=== PATIENT | male | born 1990 | race African-American/Black ===

== ENCOUNTER 2025-02-20 13:50 | Observation (INO) ==
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
[2025-02-20 15:01] LABS: Basophils # (auto) 0.03 K/uL (0.00-0.20); Basophils % (auto) 0.6 %; Eosinophils % (auto) 4.2 %; Hematocrit (blood only) 48.5 % (42.0-52.0); Hemoglobin 15.8 g/dl (14.0-18.0); Immature Granulocytes # (auto) 0.01 K/uL (0.01-0.20); Immature Granulocytes % (auto) 0.2 %; Lymphocytes # (auto) 1.26 K/uL (1.20-3.40); Lymphocytes % (auto) 26.6 %; Mean Corpuscular Hgb Conc 32.6 g/dL (32.0-36.0); Monocytes # (auto) 0.51 K/uL (0.11-0.59); Monocytes % (auto) 10.8 %; Neutrophils # (auto) 2.72 K/uL (1.40-6.50); Neutrophils % (auto) 57.6 %; Platelet Count 289 K/uL (130-400); RDW Coefficient of Variation 13.9 % (11.5-14.5); Red Blood Count 5.64 M/uL (4.70-6.10); White Blood Count 4.73 K/ul (4.8-10.8)
[2025-02-20 15:20] LABS: Albumin Globulin Ratio 1.4 (0.9-2); Albumin Level 4.8 gm/dl (3.4-5.0); BUN Creatinine Ratio 11.8 (10-20); Bilirubin,Total 0.3 mg/dl (0.2-1.0); Calcium 9.7 mg/dl (8.6-10.3); Creatinine Clr Calc Pharmacy 62.7 ml/min; Globulin 3.4 gm/dl (2.5-4.0); Potassium 4.5 mmol/L (3.5-5.1); Total Protein 8.2 gm/dl (6.0-8.3)
[2025-02-20] MEDS: OPTIRAY 320 100ml IV ONE (16:29)
[2025-02-20 16:38] LABS: Appearance Urine Clear (Clear); Bacteria Urine Automated None Seen (None Seen); Bilirubin Urine Negative (Negative); Blood Urine Negative (Negative); Cast Urine Automated 0-2 /lpf (0-2); Color Urine Yellow; Epithelial Cell Urine Auto 0-2 /hpf (0-2); Glucose Urine UA Negative (Negative); Ketones Urine Negative (Negative); Leukocyte Esterase Urine Negative (Negative); Nitrite Urine Negative (Negative); Protein Urine 1+ (Negative); RBC Urine Automated 0-2 /hpf (0-2); Specific Gravity Urine 1.009 (1.000-1.030); Urobilinogen Urine Negative (Negative); WBC Urine Automated 0-5 /hpf (0-5); pH Urine 7.5 (4.5-7.5)
[2025-02-20] MEDS: SODIUM CHLORIDE 0.9% 1,000 ML IV ONE (16:48)
--- NOTE | 2025-02-20 16:54 | CT Scan Report ---
EXAMINATION: CT of the abdomen and pelvis performed after the administration of IV contrast TECHNIQUE: Helical CT images from the lung bases through the symphysis pubis were obtained with contrast. Coronal and sagittal reformatted images were generated at a workstation for further assessment. Dose reduction techniques were achieved by using automatic exposure control and/or adjustment of mA and/or kV according to patient size and/or use of iterative reconstruction technique. COMPARISON: None HISTORY: Abdominal pain FINDINGS: Lower chest: No consolidation. No pleural effusion or pneumothorax. Liver: No suspicious liver lesions. Portal veins appear patent. Gallbladder: No gallstones. No evidence of acute cholecystitis. Spleen: Normal size. Pancreas: No suspicious pancreatic lesions. The pancreatic duct is not dilated. Adrenal glands: No adrenal nodules. Kidneys: No hydronephrosis or obstructing renal stones. Prominently striated nephrogram, with diffuse, multifocal areas of hypoenhancement throughout the renal cortices bilaterally. There is a punctate nonobstructing stone inferiorly on the right. Bladder / Pelvic organs: Unremarkable. Bowel: No bowel obstruction. No abnormal bowel wall thickening. The appendix is unremarkable. Lymph nodes: No retroperitoneal, mesenteric, or pelvic lymphadenopathy. Peritoneum / Retroperitoneum: No free fluid or air within the abdomen. Vessels: No infrarenal aortic aneurysm. Bones and soft tissues: No suspicious lesion in the bones. IMPRESSION: Prominently striated nephrogram bilaterally, most consistent with pyelonephritis. Electronically signed by Sanford Bermudez 02-20-2025 4:54 PM
[2025-02-20] MEDS: cefTRIAXone SODIUM 2,000 MG/50 ML BAG IV STA (17:16)
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
[2025-02-20] MEDS: FAMOTIDINE 20MG IV PUSH 20 MG/5 ML SYR IV STA (18:35)
--- NOTE | 2025-02-20 20:24 | CT Scan Report ---
EXAM: CT Left Lower Extremity Without Intravenous Contrast Foot INDICATION: Calcaneal wound. TECHNIQUE: Axial computed tomography images of the left foot without intravenous contrast. Sagittal and coronal reformatted images were created and reviewed. This CT exam was performed using one or more of the following dose reduction techniques: automated exposure control, adjustment of the mA and/or kV according to patient size, and/or use of iterative reconstruction technique. COMPARISON: No relevant prior studies available. FINDINGS: Bones/joints: The bones are diffusely demineralized. No erosion or fracture. No osseous destruction or dislocation. Soft tissues: Generalized fatty edema noted without fluid collection. No soft tissue gas. Focal cutaneous thickening plantar to the first metatarsophalangeal joint. No radiopaque foreign body. IMPRESSION: Generalized cellulitis. No abscess or osteomyelitis. ACT 112: N/A Electronically signed by Lia Colunga 02-20-2025 8:24 PM
[2025-02-20] MEDS ORDERED: ACETAMINOPHEN 325 MG TAB PO PRN (20:56)
[2025-02-20] MEDS ORDERED: POLYETHYLENE (MIRALAX) 17 GM PACK PO PRN (20:56)
[2025-02-20] MEDS: SODIUM CHLORIDE 0.9% 1,000 ML IV SCH (21:17)
[2025-02-20] MEDS: PANTOprazole 40 MG/10 ML SYR IV SCH (21:18)
[2025-02-20] MEDS: DICYCLOMINE HCL 10 MG CAP PO PRN (22:54)
[2025-02-20] MEDS: ONDANSETRON INJ 2 MG/ML 2 ML VIAL IV PRN (22:54)
[2025-02-20 23:06] LABS: Amphetamines+Metham, Urine Neg (Neg); Barbiturates, Urine Neg (Neg); Benzodiazepine, Urine Neg (Neg); Cocaine, Urine Neg (Neg); Fentanyl, Urine Neg (Neg); MDMA (Ecstacy), Urine Neg (Neg); Marijuana, Urine Neg (Neg); Methadone, Urine Neg (Neg); Opiate, Urine Neg (Neg); Phencyclidine, Urine Neg (Neg)
[2025-02-20] MEDS ORDERED: LABETALOL HCL IV 5 MG/ML 20ML IV PRN (23:30)
[2025-02-21 07:36] LABS: Hematocrit (blood only) 44.2 % (42.0-52.0); Hemoglobin 14.3 g/dl (14.0-18.0); Mean Corpuscular Hemoglobin 27.6 pg (25.0-34.0); Mean Corpuscular Hgb Conc 32.4 g/dL (32.0-36.0); Mean Corpuscular Volume 85.2 fL (80.0-100.0); Mean Platelet Volume 9.7 fL (9.4-12.4); Platelet Count 256 K/uL (130-400); RDW Coefficient of Variation 13.6 % (11.5-14.5); RDW Standard Deviation 42.5 fL (36.4-46.3); Red Blood Count 5.19 M/uL (4.70-6.10); White Blood Count 4.72 K/ul (4.8-10.8)
[2025-02-21 07:52] LABS: BUN Creatinine Ratio 10.9 (10-20); Calcium 8.8 mg/dl (8.6-10.3); Potassium 4.2 mmol/L (3.5-5.1)
[2025-02-21] MEDS: CYANOCOBALAMIN (B-12) 500 MCG TABLET PO SCH (08:26)
[2025-02-21] MEDS: MULTIVITAMIN TAB PO SCH (08:26)
[2025-02-21] MEDS: FOLIC ACID 1 MG TAB PO SCH (08:26)
[2025-02-21] MEDS: THIAMINE HCL 100 MG TAB PO SCH (08:27)
[2025-02-21] MEDS: cefTRIAXone SODIUM 2,000 MG/50 ML BAG IV SCH (09:02)
--- OUTSIDE RECORDS SUMMARY | 2025-02-21 10:28 | External Medical Summary | Summary of Care ---
Author Name Unknown Organization [facility] Address [address] [facility] [place]AL[place] Reynoso [id number] Care Team Providers Care Threading Machine Feeder Automatic Name Role Phone None, Sigel Primary Care Provider Unavailabl e Encounter Details Date Type Department Care Team (Late st Contact Info) Description 11/29/2024 3:10 PM EST Lab [facility] [address] [place] [address] Cocaine dependence, continuous (HCC) (Primary Dx); Acute alcoholism (HCC) Social History Tobacco Use Types Packs/Day Years Used Date Smoking Tobacco: Never Assessed Sex and Gender Information Value Date Recorded Sex Assigned at Not on file Gender Identity Not on file Sexual Orientation Not on file documented as of this encounter Plan of Treatment Health Maintenance Due Date Last Done Comments DEPRESSION SCREENING 1991 HEPATITIS C SCREENING 1991 SDOH SCREENING 1991 HIV SCREENING 2006 DTaP/Tdap/Td Vaccines (1 - Tdap) 2010 INFLUENZA VACCINE (#1) 2024 RSV IMMUNIZATION 60 YRS+ or (1 - 1-dose 75+ series) 2066 HEPATITIS A IMMUNIZATION SERIES Aged Out No longer eligible based on patient's age to complete this topic HPV IMMUNIZATION SERIES Aged Out No l onger eligible based on patient's age to complete this topic MENINGOCOCCAL VACCINE IMM Aged Out No longer eligible based on patient's age to complete this topic PNEUMOCOCCAL 0-64 YRS Aged Out No piter jailyn eligible based on patient's age to complete this topic RSV IMMUNIZATION <20 MONTHS Aged Out No longer eligible based on patient's age to complete this topic documented as of this encounter Procedures Procedure Name Priority Date/Time Associated Diagnosis Comments URINALYSIS WITH REFLEX CULTURE Routine 11/29/2024 3:25 PM EST Cocaine dependence, continuous (HCC) Acute alcoholism (HCC) CBC WITH DIFFERENTIAL Routine 11/29/2024 3:23 PM EST Cocaine dependence, continuous (HCC) Acute alcoholism (HCC) COMPREHENSIVE METABOLIC PANEL Routine 11/29/2024 3:23 PM EST Cocaine dependence, continuous (HCC) Acute alcoholism (HCC) documented in this encounter Results * URINALYSIS WITH REFLEX CULTURE (11/29/2024 3:25 PM EST) Urine Color Yellow Yellow 11/29/2024 4:04 PM [facility] Urine Appearance Clear Clear 11/29/19 4:04 PM [facility] Urine Glucose Negative Negative mg/dl 11/29/2024 4:04 PM [facility] Urine Bilirubin Negative Negative 4:04 PM [facility] Urine Ketones Negative Negative mg/dL 11/29/2024 4:04 PM [facility] Urine Specific [place] <=1.005 1.005 - 1.030 11/29/2024 4:04 PM [facility] Urine Blood Negative Negative 11/29/2024 4:04 PM [facility] Urine Ph 6.5 5.0 - 8.0 11/29/2024 4:04 PM [facility] Urine Protein Negative Negative mg/dl 11/29/2024 4:04 PM [facility] Urine Urobilinogen 0.2 0.2 - 1.0 E.U./DL 11/29/2024 4:04 PM [facility] Urine Nitrite Negative Negative 11/29/2024 4:04 PM [facility] Urine Leukocytes Negative Negative 11/29/19 4:04 PM [facility] Urine URINE SPECIMEN OBTAINED BY CLEAN CATCH PROCEDURE / Unknown Collection - Patient / Unknown 11/29/2024 3:25 PM EST 11/29/2024 3:45 PM EST Julius Hanks MD LABORATORY [facility] [address] [place] [address] * (ABNORMAL) COMPREHENSIVE METABOLIC PANEL (11/29/2024 3:23 PM EST) Sodium 140 136 - 145 mmol/L 11/29/19 4:17 PM [facility] Potassium 4.3 3.5 - 5.1 mmol/L 11/29/19 4:17 PM [facility] Chloride 107 98 - 107 mmol/L 4:17 PM [facility] CO2 23 22 - 29 mmol/L 11/29/2024 4:17 PM [facility] Calcium 9.0 8.6 - 10.0 mg/dl 11/29/19 4:17 PM [facility] Albumin 4.3 3.5 - 5.2 g/dl 11/29/2024 4:17 PM [facility] BUN 10 6 - 20 mg/dl 11/29/2024 4:17 PM [facility] Creatinine 1.00 0.67 - 1.17 mg/dl 025 4:17 PM [facility] Glucose 110(H) 70 - 99 mg/dl 11/29/2024 4:17 PM [facility] Total Protein 7.0 6.4 - 8.3 g/dl 025 4:17 PM [facility] Total Bilirubin 0.20 0.00 - 1.10 MG/DL 11/29/2024 4:17 PM [facility] AST 21 <=40 U/L 11/29/2024 4:17 PM [facility] ALT 40 5 - 41 U/L 11/29/2024 4:17 PM [facility] Alkaline Phosphatase 84 40 - 129 U/L 11/29/2024 4:17 PM [facility] eGFR >60 See Interpretation Below ml/min/1.73ml Sq 11/29/2024 4:17 PM [facility] Comment: Estimated GFR Interpretation: Above 60ml/min/1.73m2 = Normal Renal Function 30-59 ml/min/1.73m2 = Stage 3 Chronic Kidney Disease 15-29 ml/min/1.73m2 = Stage 4 Chronic Kidney Disease Less than 15 ml/min/1.73m2 = Stage 5 Chronic Kidney Disease Reported eGFR is based the CKD-EPI 2020 equation that does not use a race coefficient. https://www.kidney.org/professionals/kdoqi/gfr_calculator BUN/Creatinine Ratio 10 6 - 22 RATIO 11/29/2024 4:17 PM [facility] Anion Gap 10 3 - 11 mmol/L 11/29/2024 4:17 PM [facility] A/G Ratio 1.6 0.8 - 2.0 ratio 4:17 PM [facility] Blood BLOOD SPECIMEN / Unknown Venipuncture / Unknown 11/29/2024 3:23 PM EST 11/29/2024 3:44 PM EST Julius Hanks MD LABORATORY [facility] [address] [place] [address] * CBC WITH DIFFERENTIAL (11/29/2024 3:23 PM EST) WBC Count 6.71 4.23 - 9.07 K/uL 11/29/2024 3:50 PM [facility] RBC Count 5.27 4.30 - 5.89 M/UL 11/29/2024 3:50 PM [facility] Hemoglobin 14.9 13.7 - 17.5 g/dL 11/29/2024 3:50 PM [facility] Hematocrit 45.1 40.1 - 51.0 % 11/29/2024 3:50 PM [facility] MCV 85.6 79.0 - 92.2 FL 11/29/2024 3:50 PM [facility] MCH 28.3 25.7 - 32.2 PG 11/29/2024 3:50 PM [facility] MCHC 33.0 32.3 - 36.5 g/dL 11/29/2024 3:50 PM [facility] Platelet Count 314 163 - 337 K/uL 11/29/2024 3:50 PM [facility] MPV 10.0 9.4 - 12.4 FL 11/29/2024 3:50 PM [facility] RDW 13.3 11.6 - 14.4 % 11/29/2024 3:50 PM [facility] Neutrophil % 46.2 34.0 - 67.9 % 11/29/2024 3:50 PM [facility] Lymphocyte % 41.3 21.8 - 53.1 % 11/29/2024 3:50 PM [facility] Monocyte % 7.5 5.3 - 12.2 % 11/29/2024 3:50 PM [facility] Eosinophil % 4.3 0.8 - 7.0 % 11/29/2024 3:50 PM [facility] Basophil % 0.6 0.2 - 1.2 % 11/29/2024 3:50 PM [facility] Neutrophils Absolute (ANC) 3.10 1.78 - 5.38 K/UL 11/29/2024 3:50 PM [facility] Lymphocytes Absolute 2.77 1.32 - 3.57 K/UL 11/29/2024 3:50 PM [facility] Monocytes Absolute 0.50 0.30 - 0.82 K/UL 11/29/2024 3:50 PM [facility] Eosinophils Absolute 0.29 0.04 - 0.54 K/UL 11/29/2024 3:50 PM [facility] Basophils Absolute 0.04 0.00 - 0.08 K/UL 11/29/2024 3:50 PM [facility] Immature Gran % 0.1 0.0 - 0.4 % 11/29/2024 3:50 PM [facility] Immature Grans Absolute 0.01 0.00 - 0.03 K/uL 11/29/2024 3:50 PM [facility] Blood BLOOD SPECIMEN / Unknown Venipuncture / Unknown 11/29/2024 3:23 PM EST 11/29/2024 3:44 PM EST Julius Hanks MD LABORATORY [facility] [address] [place] [address] documented in this encounter Visit Diagnoses Diagnosis Cocaine dependence, continuous (HCC)- Primary Cocaine dependence, continuous Acute alcoholism (HCC) Acute alcoholic intoxication in alcoholism, unspecified documented in this encounter Care Teams Threading Machine Feeder Automatic Relationship Specialty Start Date End Date None, Sigel [place]INT[place]A [id number] PCP - General 11/29/24 documented as of this encounter
--- OUTSIDE RECORDS SUMMARY | 2025-02-21 10:28 | External Medical Summary | Summary of Care ---
Author Name Unknown Organization [facility] Address [address] [address] Care Team Providers Care Horticulture Supervisor Name Role Phone None, [place] Primary Care Provider Unavailabl e Reason for Visit * Reason Comments Emesis Abdominal Pain Encounter Details Date Type Department Care Team (Late st Contact Info) Description 12/29/2024 1:03 PM EST - 12/29/2024 4:24 PM EST Emergency [facility] Emergency Department [address] [place] [address] Angus Wilkins MD [address] [id number] Emergency Discharge Disposition: Home or Self Care (Routine) Allergies No known active allergiesdocumented as of this encounter (statuses as of 12/30/2024) Social History Tobacco Use Types Packs/Day Years Used Date Smoking Tobacco: Never Assessed Sex and Gender Information Value Date Recorded Sex Assigned at Not on file Legal Sex Male 3:09 PM EST Gender Identity Not on file Sexual Orientation Not on file documented as of this encounter Last Filed Vital Signs Vital Sign Reading Time Taken Comments Blood Pressure 156/92 12/29/2024 3:55 PM EST Pulse 83 12/29/2024 3:55 PM EST Temperature 35.9 C (96.6 F) 12/29/2024 3:55 PM ES T Respiratory Rate 16 12/29/2024 3:55 PM EST Oxygen Saturation 99% 12/29/2024 3:55 PM EST Inhaled Oxygen Concentration - - Weight - - Height - - Body Mass Index - - documented in this encounter Discharge Instructions * Attachments The following attachments cannot be sent through Care Everywhere. * Viral Gastroenteritis Discharge Instructions, Adult (Ukrainian) documented in this encounter ED Notes * Angus Wilkins MD - 12/29/2024 3:11 PM EST PATIENT: Ricky Jhaveri : 1990 DATE OF SERVICE: 12/29/2024 LOCATION: [facility] EMERGENCY DEPARTMENT History of Present Illness Chief Complaint Patient presents with Emesis Abdominal Pain Ricky Jhaveri is a 34-y.o. male who presents from rehab facility to the emergency department for evaluation of nausea vomiting and diarrhea. Patient says that she been having over a week of diarrhea and nausea and vomiting for the past 4 days. He says multiple people he is living with are sick withCOVID, the flu or other illnesses but he has been avoiding them and spending minimal contact with them. Patient says that he has been having 6 bowel movements daily and vomited up to twice a day. Currently denies any abdominal pain to me. Denies any recent drug use, headache, fevers, chest pain, shortness of breath, abdominal pain, lower extreme edema or rashes. Medical Problems No past medical history on file. No past surgical history on file. No Known Allergies No current outpatient medications on file. Review of Systems Review of Systems Constitutional: Negative for fever. HENT: Negative for congestion and sore throat. Respiratory: Negative for cough and shortness of breath. Cardiovascular: Negative for chest pain. Gastrointestinal: Positive for diarrhea, nausea and vomiting. Negative for abdominal pain. Genitourinary: Negative for dysuria and hematuria. Musculoskeletal: Negative for back pain. Skin: Negative for wound. Neurological: Negative for dizziness and headaches. Physical Exam BP 156/92 Pulse 83 Temp 96.6 F (35.9 C) Resp 16 SpO2 99% Physical Exam Vitals and nursing note reviewed. Constitutional: General: He is not in acute distress. Appearance: He is not ill-appearing, toxic-appearing or diaphoretic. HENT: Head: Normocephalic. Right Ear: External ear normal. Left Ear: External ear normal. Mouth/Throat: Mouth: Mucous membranes are moist. Pharynx: Oropharynx is clear. Eyes: Extraocular Movements: Extraocular movements intact. Cardiovascular: Rate and Rhythm: Normal rate and regular rhythm. Pulses: Normal pulses. Heart sounds: Normal heart sounds. Pulmonary: Effort: Pulmonary effort is normal. Breath sounds: Normal breath sounds. Abdominal: General: Abdomen is flat. Palpations: Abdomen is soft. Tenderness: There is no abdominal tenderness. Musculoskeletal: General: No deformity. Skin: General: Skin is warm. Capillary Refill: Capillary refill takes less than 2 seconds. Neurological: Mental Status: He is alert. Mental status is at baseline. Psychiatric: Mood and Affect: Mood normal. Behavior: Behavior normal. Thought Content: Thought content normal. Judgment: Judgment normal. Diagnostics and Orders Orders (may include home medications, admission meds, or prescriptions): Orders Placed This Encounter CBC WITH DIFFERENTIAL BASIC METABOLIC PANEL MAGNESIUM LEVEL RESPIRATORY PANEL LIMITED PCR (COVID, FLU A/B, RSV) lactated ringers IV 1,000 mL ondansetron (ZOFRAN) injection 4 mg Labs Reviewed CBC WITH DIFFERENTIAL - Abnormal; Notable for the following components: Result Value MCHC 32.2 (*) All other components within normal limits MAGNESIUM LEVEL - Normal RESPIRATORY PANEL LIMITED PCR (COVID, FLU A/B, RSV) - Normal BASIC METABOLIC PANEL No data to display No orders to display Procedures Procedures Vital Signs Patient Vitals for the past 24 hrs: BP Temp Temp src Pulse Resp SpO2 12/29/24 1555 (!) 156/92 96.6 F (35.9 C) -- 83 16 99 % 12/29/24 1302 (!) 148/80 97.6 F (36.4 C) TEMPORAL 87 18 100 % Impression 1. Viral gastroenteritis Medical Decision Making Ricky Jhaveri is a 34-y.o. male presenting for evaluation of nausea, vomiting and diarrhea. Vital signs and physical exam as above Patient overall well-appearing. Likely has a viral gastroenteritis considering his sick contacts. Will evaluate for any electrolyte/metabolic derangements and treat his symptoms. Medical Decision Making Course ED Course as of 12/29/24 1619 Sat Dec 29, 2024 1544 Labs unremarkable. [TP] 1544 Patient feeling better and is tolerating p.o. food and fluids. [TP] 1615 Patient declines prescription for Zofran. [TP] 1618 Results reviewed where applicable. Symptomatic care discussed and prescriptions/OTC medications explained where applicable. Outpatient follow-up with the PCP and/or specialist services was recommended. Discharge instructions were reviewed and all questions were answered. Warning signs of when to return were discussed. Patient is stable at this time to be discharged to home. [TP] ED Course User Index [TP] Angus Wilkins MD Porturas, Thomas P, MD 12/29/24 1620 * Ivett Salter RN - 12/29/2024 3:02 PM EST Pt given crackers, sandwich and joanie vasyl, tolerating well Ivett Salter RN 12/29/24 1502 * Ivett Salter RN - 12/29/2024 1:41 PM EST Pt asking for coffee as I entered exam room, suggested pt wait since he's here for abdominal issuestoday, pt then asking for crackers and other items to eat and drink. I did tell pt he would need towait for a provider to see him first, pt verbalizes understanding Ivett Salter RN 12/29/24 1343 * Stephane Up DO - 12/29/2024 1:02 PM EST PATIENT: Ricky Jhaveri : 1990 DATE OF SERVICE: 12/29/2024 LOCATION: EMERGENCY DEPARTMENT Emergency Medicine Rapid Medical Screening Exam [facility] EMERGENCY DEPARTMENT Ricky Jhaveri is a 34-y.o. male who presents for evaluation of vomiting, diarrhea. EXAM: BP 148/80 Pulse 87 Temp 97.6 F (36.4 C) (Temporal) Resp 18 SpO2 100% Physical Exam Vitals reviewed. HENT: Head: Normocephalic. Comments: Dry oral mucosa Cardiovascular: Rate and Rhythm: Normal rate. Pulmonary: Effort: Pulmonary effort is normal. Abdominal: General: Abdomen is flat. Skin: General: Skin is warm. Capillary Refill: Capillary refill takes less than 2 seconds. Neurological: Mental Status: He is alert. 34-year-old male with a past medical history of PTSD, alcohol use disorder presented for evaluationof nausea, vomiting, diarrhea for the last week. He reports that diarrhea started 1 week ago. He started vomiting 2 days ago. He has no known sick contacts. 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 He reports that the symptoms are different than that. He reports no recent cocaine or alcohol use. Will obtain labs and swabs and administer IV fluids. Orders Placed This Encounter CBC WITH DIFFERENTIAL BASIC METABOLIC PANEL MAGNESIUM LEVEL RESPIRATORY PANEL LIMITED PCR (COVID, FLU A/B, RSV) lactated ringers IV 1,000 mL I discussed the plan of care with the patient. The patient was advised to remain in the emergency department until further evaluation can be completed. Patient was instructed to notify staff of any changes in condition while waiting. Impression Chief Complaint Patient presents with Emesis Abdominal Pain Stephane Up DO 12/29/2024 13:07 * Beba Peña RN - 12/29/2024 1:01 PM EST Pt c/o N/V/D and abd pain for 4 days. documented in this encounter Plan of Treatment Health Maintenance [...] patient's age to complete this topic PNEUMOCOCCAL 0-49 YRS Aged Out No piter jailyn eligible based on patient's age to complete this topic RSV IMMUNIZATION <20 MONTHS Aged Out No longer eligible based on patient's age to complete this topic documented as of this encounter Procedures Procedure Name Priority Date/Time Associated Diagnosis Comments CBC WITH DIFFERENTIAL STAT 12/29/2024 1:18 PM EST RESPIRATORY PANEL LIMITED PCR (COVID, FLU A/B, RSV) STAT 12/29/2024 1:18 PM EST MAGNESIUM LEVEL STAT 12/29/2024 1:18 PM EST BASIC METABOLIC PANEL STAT 12/29/2024 1:18 PM EST documented in this encounter Results * RESPIRATORY PANEL LIMITED PCR (COVID, FLU A/B, RSV) (12/29/2024 1:18 PM EST) SARS-CoV-2 Negative Negative CEPHEID GENEXPERT 12/29/2024 2:05 PM [facility] Influenza A PCR Assay Negative Negative CEPHEID GENEXPERT 12/29/2024 2:05 PM [facility] Influenza B PCR Assay Negative Negative CEPHEID GENEXPERT 12/29/2024 2:05 PM [facility] RSV PCR Assay Negative Negative CEPHEID GENEXPERT 12/29/2024 2:05 PM [facility] Upper Respiratory SWAB OF INTERNAL NOSE / Unknown Collection - Non Lab / Unknown 12/29/2024 1:18 PM EST 12/29/2024 1:23 PM EST [facility] - 12/29/2024 2:05 PM EST Testing performed by PCR Limitations: Performance of the Xpert Xpress CoV-2/Flu/RSV plus test has only been established in nasopharyngeal swab and anterior nasal swab specimens. Use of the Xpert Xpress CoV-2/Flu/RSV plus test with other specimen types has not been assessed and performance characteristics are unknown. This test cannot rule out diseases caused by other bacterial or viral pathogens. Erroneous test results might occur from improper specimen collection; failure to follow the recommended sample collection, handling, and storage procedures; technical error; or sample mix-up. Careful compliance with the product instructions is necessary to avoid erroneous results. False negative results may occur if virus is present at levels below the analytical limit of detection. Negative results do not preclude SARS-CoV-2, influenza or RSV infection and should not be used as the sole basis for treatment or other patient management decisions. Results from the Xpert Xpress SARS-CoV-2/Flu/RSV test should be correlated with the clinical history, epidemiological data, and other data available to the clinician evaluating the patient. Viral nucleic acid may persist in vivo, independent of virus viability. Detection of analyte target(s) does not imply that the corresponding virus(es) are infectious or are the causative agents for clinical symptoms. This test has not been evaluated for monitoring treatment of infection. This test has not been evaluated for screening of blood or blood products for the presence of SARS-CoV-2, influenza or RSV. Cross-reactivity with respiratory tract organisms other than those described in the product information can lead to erroneous results. Recent patient exposure to FluMist or other live attenuated influenza vaccines may cause inaccurate positive results. Zicam at 15% (w/v) may interfere with the detection of low levels of influenza B and RSV A. As the Xpert Xpress SARS-CoV-2/Flu/RSV test does not differentiate between the N2, RdRP and E gene targets, the presence of other coronaviruses in the B lineage, Betacoronavirus genus, including SARS-CoV may cause a false positive result. None of these other coronaviruses is known to currently circulate in the human population. Please review the "Fact Sheets" for health care providers and patients and the FDA authorized labeling available on [facility] website: https://scroll kitCQuotient.Cinchcast.Octmami/:f:/s/External/[email or web address] [email or web address] Detailed information concerning the limitations is available on [facility] website: [facility]/[place] Stephane Up DO LABORATORY Final Result [facility] [address] [place] [address] * MAGNESIUM LEVEL (12/29/2024 1:18 PM EST) Magnesium 2.0 1.6 - 2.6 MG/DL 12/29/2024 1:47 PM [facility] Blood BLOOD SPECIMEN / Unknown Venipuncture / Unknown 12/29/2024 1:18 PM EST 12/29/2024 1:23 PM EST Stephane Up DO LABORATORY Final Result [facility] [address] [place] [address] * BASIC METABOLIC PANEL (12/29/2024 1:18 PM EST) Glucose 79 70 - 99 mg/dl 12/29/2024 1:47 PM [facility] BUN 10 6 - 20 mg/dl 12/29/2024 1:47 PM [facility] Creatinine 1.00 0.67 - 1.17 mg/dl 025 1:47 PM [facility] Sodium 141 136 - 145 mmol/L 12/29/19 25 1:47 PM [facility] Potassium 3.8 3.5 - 5.1 mmol/L 12/29/19 25 1:47 PM [facility] Chloride 105 98 - 107 mmol/L 5 1:47 PM [facility] CO2 26 22 - 29 mmol/L 12/29/2024 1:47 PM [facility] Calcium 9.1 8.6 - 10.0 mg/dl 12/29/19 25 1:47 PM [facility] eGFR >60 See Interpretati on Below ml/min/1.73ml Sq 12/29/2024 1:47 PM [facility] Comment: Estimated GFR Interpretation: Above 60ml/min/1.73m2 = Normal Renal Function 30-59 ml/min/1.73m2 = Stage 3 Chronic Kidney Disease 15-29 ml/min/1.73m2 = Stage 4 Chronic Kidney Disease Less than 15 ml/min/1.73m2 = Stage 5 Chronic Kidney Disease Reported eGFR is based the CKD-EPI 2020 equation that does not use a race coefficient. https://www.kidney.org/professionals/kdoqi/gfr_calculator BUN/Creatinine Ratio 10 6 - 22 RATIO 12/29/2024 1:47 PM [facility] Anion Gap 10 3 - 11 mmol/L 12/29/2024 1:47 PM [facility] Blood BLOOD SPECIMEN / Unknown Venipuncture / Unknown 12/29/2024 1:18 PM EST 12/29/2024 1:23 PM EST Stephane Up DO LABORATORY Final Result [facility] [address] [place] [address] * (ABNORMAL) CBC WITH DIFFERENTIAL (12/29/2024 1:18 PM EST) WBC Count 4.77 4.23 - 9.07 K/uL 12/29/2024 1:26 PM [facility] RBC Count 5.20 4.30 - 5.89 M/UL 12/29/2024 1:26 PM [facility] Hemoglobin 14.4 13.7 - 17.5 g/dL 12/29/2024 1:26 PM [facility] Hematocrit 44.7 40.1 - 51.0 % 12/29/2024 1:26 PM [facility] MCV 86.0 79.0 - 92.2 FL 12/29/2024 1:26 PM [facility] MCH 27.7 25.7 - 32.2 PG 12/29/2024 1:26 PM [facility] MCHC 32.2(L) 32.3 - 36.5 g/dL 12/29/2024 1:26 PM [facility] Platelet Count 288 163 - 337 K/uL 12/29/2024 1:26 PM [facility] MPV 9.5 9.4 - 12.4 FL 12/29/2024 1:26 PM [facility] RDW 13.4 11.6 - 14.4 % 12/29/2024 1:26 PM [facility] Neutrophil % 40.7 34.0 - 67.9 % 12/29/2024 1:26 PM [facility] Lymphocyte % 40.5 21.8 - 53.1 % 12/29/2024 1:26 PM [facility] Monocyte % 11.3 5.3 - 12.2 % 12/29/2024 1:26 PM [facility] Eosinophil % 6.7 0.8 - 7.0 % 12/29/2024 1:26 PM [facility] Basophil % 0.6 0.2 - 1.2 % 12/29/2024 1:26 PM [facility] Neutrophils Absolute (ANC) 1.94 1.78 - 5.38 K/UL 12/29/2024 1:26 PM [facility] Lymphocytes Absolute 1.93 1.32 - 3.57 K/UL 12/29/2024 1:26 PM [facility] Monocytes Absolute 0.54 0.30 - 0.82 K/UL 12/29/2024 1:26 PM [facility] Eosinophils Absolute 0.32 0.04 - 0.54 K/UL 12/29/2024 1:26 PM [facility] Basophils Absolute 0.03 0.00 - 0.08 K/UL 12/29/2024 1:26 PM [facility] Immature Gran % 0.2 0.0 - 0.4 % 12/29/2024 1:26 PM [facility] Immature Grans Absolute 0.01 0.00 - 0.03 K/uL 12/29/2024 1:26 PM [facility] Blood BLOOD SPECIMEN / Unknown Venipuncture / Unknown 12/29/2024 1:18 PM EST 12/29/2024 1:23 PM EST Stephane Up DO LABORATORY Final Result [facility] [address] [place] [address] documented in this encounter Visit Diagnoses Diagnosis Viral gastroenteritis- Primary Intestinal infection due to other organism, not elsewhere classified documented in this encounter Administered Medications Inactive Administered Medications - up to 3 most recent administrations Medication Order MAR Action Action Date Dose Rate Site lactated ringers IV 1,000 mL 1,000 mL, Intravenous, at 983.6 mL/hr, BOLUS, 1 dose, On 12/29/24 at 1310, PLEASE update admin over time if rate calculates to OVER 999 mL/hr. New Bag 12/29/2024 1:44 PM EST 1,000 mL 983.6 mL/hr ondansetron (ZOFRAN) injection 4 mg 4 mg, Intravenous Push, NOW, 1 dose, On 12/29/24 at 1450 Given 12/29/2024 2:58 PM EST 4 mg documented in this encounter Active and Recently Administered Medications Times are shown in EST. Scheduled Medication Order 12/27/2024 12/28/2024 12/29/2024 lactated ringers IV 1,000 mL (COMPLETED) 1,000 mL, Intravenous, at 983.6 mL/hr, BOLUS, 1 dose, On 12/29/24 at 1310, PLEASE update admin over time if rate calculates to OVER 999 mL/hr. 1344 (New Bag - Prov ider: Ivett Salter RN)1458 (Stopped - Provider: Ivett Salter RN) ondansetron (ZOFRAN) injection 4 mg (COMPLETED) 4 mg, Intravenous Push, NOW, 1 dose, On 12/29/24 at 1450 1458 (Given - Provid er: Ivett Salter RN) documented in this encounter Additional Health Concerns Infection Onset Date Last Indicated Resolved Time Respiratory Illness Rule-Out 12/29/2024 12/29/2024 12/29/2024 2:05 PM EST documented as of this encounter Insurance documented as of this encounter Care Teams Horticulture Supervisor Relationship Specialty Start Date End Date None, [place] [address] [id number] PCP - General 11/29/24 documented as of this encounter
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
[2025-02-21] MEDS: LACTATED RINGER'S 500 ML IV ONE (14:07)
[2025-02-21 14:56] VITALS: BP 143/91; RESP 17; TEMP 98.2; O2SAT 98
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
[2025-02-21 15:55] VITALS: PULSE 61
--- NOTE | 2025-02-21 15:59 | Ultrasound Report ---
RENAL ULTRASOUND HISTORY: CT abnormality COMPARISON: CT scan yesterday FINDINGS: Right kidney measures 11 x 5 cm. Left kidney measures 11 x 6 cm. There is no hydronephrosis bilaterally. No renal calculi seen. Renal cortical thickness is normal. There is a 1.5 cm cyst mid a spect right kidney. Urinary bladder is grossly unremarkable. IMPRESSION: The abnormality at the kidneys on the prior CT is not appreciated by ultrasound. Other t rodríguez a small benign appearing right renal cyst. The kidneys have an unremarkable appearance bilaterall y. ACT 112: Negative or not required by law. Electronically signed by: Gavino Aguilar M.D. 02/21/2025 3:57 PM
[2025-02-27 03:27] LABS: Anti Cardiolipin Ab IgG <2.0 GPL-U/mL; Anti Cardiolipin Ab IgM 5.3 MPL-U/mL; Anti Nuclear Antibody Screen NEGATIVE (NEGATIVE); Anti-Centromere Ab <1.0 NEG AI (<1.0 NEG); Anti-SS-A <1.0 NEG AI (<1.0 NEG); Anti-SS-B <1.0 NEG AI (<1.0 NEG); Chromatin Antibody <1.0 NEG AI (<1.0 NEG); Complement C3 158 mg/dL (82-185); DNA ds Crithidia NEGATIVE (NEGATIVE); Microsomal Ab <1 IU/mL (<9); RNP Antibody <1.0 NEG AI (<1.0 NEG); Sm Antibody <1.0 NEG AI (<1.0 NEG)
== END 2025-02-21 16:20 | disposition alcohol treatment (31) | DRG 690 ==
LOC: ED 13:50 → SUATTDRO 18:35 → EDINP 18:35 → INTOOBSV 18:35 → 2S 20:57